=== PATIENT | female | born 1980 | race Caucasian/White ===

== ENCOUNTER 2016-07-12 09:53 | Emergency (ER) | payer SELFPAY ==
[~2016-07-12] VITALS: Ht 167.6 cm; Wt 63.6 kg
[2016-07-12 09:54] VITALS: BP 110/80; PULSE 74; RESP 18; O2SAT 99
[2016-07-12] MEDS ORDERED: ProchlorPERazine 5 mg/mL 2 mL Inj IM ONE (10:50)
[2016-07-12] MEDS ORDERED: Ketorolac 30 mg/mL 2 mL Inj IM ONE (10:50)
--- NOTE | 2016-07-12 11:04 | ED.REPORT ---
HPI-Headache Date of Service Jul 12, 2016 ED Provider: History of Present Illness: Mrs. Kate Lara is a pleasant 35-year-old female with past medical history significant for migraine headaches and back spasms presents to [facility] emergency Department for 1 day onset of migraines and back spasms. She reports a hiking trip 5 days ago on Sunday and Sunday morning began to have prodromal migraine symptoms similar to the one she has had no past however this time was associated with chills and spasms from her sacral region up to her neck and lasted multiple days. She reports her headache as an 8 out of 10 throbbing and diffuse radiating to the back of her eyes. She also reports associated photophobia and nausea. All weekend she rested in her bed and applied ice and heat and 20 minute intervals and took Excedrin. She reported that this lasted until Sunday, at which point she felt "normal." She began to feel as she did Sunday morning, generally ill with mild nausea and new onset chills. She arrives to the emergency department because she does not know what to do and feels that she needs relief k from the back spasms and headache and states she would like to return to work. She reports that this is not the worst headache of her life she does not have neck stiffness high fevers uncontrolled vomiting or other neurologic abnormalities such as numbness and tingling or loss of bowel and bladder. Nursing Notes Stated Complaint: BACK SPASMS/MIGRAINE Nursing Notes Reviewed: Yes Allergies: Uncoded Allergies: PENICILLIN (Allergy, Unknown, 11/30/09) Scheduled Prochlorperazine Maleate (Compazine) 10 Mg Tablet 10 MG PO TID Scheduled PRN Naproxen (Naproxen) 500 Mg Tab 500 MG PO BID PRN PRN For Pain General Time Seen by MD: 10:08 Chief Complaint Migraine headache Sudden in Onset?: Yes Past Medical History Past Medical History Cesarian section in 2009. Steroid injections in lumbar region. Migraines. Back spasms. Smoking History Never Smoker Social History Alcohol Use: "Social" Drug Use: Denies drug use Other Social History: Good social support Ambulatory Status Independent Review of Systems Review of Systems Note: A comprehensive review of systems was conducted with the patient and found to be negative except as above in the History of Present Illness. Complete sys rev & neg: except as marked. Physical Exam Physical Exam Notes: General: Elderly lady lying in bed on her right side with the lights dimmed in the room in no acute distress, well-developed, well-nourished, appropriately interactive HEENT: Normocephalic, atraumatic. External ears without defect. Pupils equal, round, and reactive to light and accommodation. Anicteric sclerae, moist conjunctivae, and no lid lag. Oropharynx free of erythema and cobble stoning with moist mucosa. Neck: Supple with full range of motion. No jugular venous distension. No bruits. No lymphadenopathy or thyromegaly. Cardiovascular: Regular rate and rhythm with no murmurs, rubs, or gallops appreciated Pulmonary: Clear to auscultation bilaterally with no crackles, wheezes, or rhonchi. Normal respiratory effort with no use of accessory muscles. Abdomen: Bowel tones present. Soft, nontender, nondistended. No hepatosplenomegaly or masses appreciated. Extremities: No clubbing, cyanosis, edema, or lymphadenopathy appreciated. Skin: Normal temperature, turgor, and texture; no rash, ulcers, or subcutaneous nodules appreciated. Neurological: Cranial nerves grossly intact. Normal muscle strength, tone, and bulk. Reflexes, coordination, and sensory function within normal limits. No known gait impairment. Musculoskeletal: Muscular tenderness noted from T10 to L2 paraspinal muscles. No tenderness noted along spinal processes. Psychiatric: Normal mood and affect. Alert and oriented to person, place, and time. Initial Vital Signs Vital Signs (First) Date Time Temp Pulse Resp B/P Pulse Ox O2 Delivery O2 Flow Rate FiO2 07/12/16 09:54 37 74 18 110/80 99 Room Air Re-Eval/Medical Decision Med Decision/Clinical Course Ms. Kate Carrero is experiencing migraines with photophobia and without aura and back spasms similar to previous episodes and also notes this is not the worst headache of her life. Her vitals were all within normal range, she has no aura no radiculopathy, no sensory dysfunction, no spinal tenderness, no neck stiffness. She reports some chills nausea and headache that she describes as associated with her muscle spasms. Here in the emergency department she was received 60 mg IM Toradol, 10 mg IM Compazine, and 50 mg IM Benadryl with moderate resolution of symptoms. Plan to send her home with Naproxen 500 mg BID PO and Compazine 10 mg TID PO. We recommend follow up with PCP and emergency contact directions. Discharge & Departure Shift Change Sign-Out Discussed Complaint(s): Yes Laboratory Evaluation: Lab evaluation discussed Response to Therapy: Improved Impression: Primary Impression: Migraine Additional Impression: Back spasm Disposition: Home Discharge Condition All VS Reviewed: Yes Condition: Stable Additional Instructions: During you visit to [facility] Emergency Department gave you IV Benadryl, IV Compazine, and IV toradol, With mild to moderate symptom relief. Here your vitals were stable and your physical exam did not reveal any emergent conditions. We will send you home with - Pain medications / Anti-inflammatory - Naproxen 500 mg by mouth twice a day as needed - Nausea medications Compazine 10 mg by mouth Do not hesitate to call emergency services or your primary care physician if you experience any of the following. -High unrelenting fevers. -Uncontrolled vomiting. -Acute change in vision -Severe hypertension. -Syncope or loss of consciousness. -Chest pain or severe shortness of breath. -Neurologic change like numbness tingling, weakness, paralysis. Follow up with your primary care physician in 1-2 weeks time following your emergency department visit for medication checks and general well-being. Recommend follow-up with Dr. Oksana Chen at [facility] for back pain, migraines, and healthcare. Attending Statement The patient was seen and examined together with Dr. Snyder on 07/12/16 and I have added additional information to the note above. copies to: Oksana Al COREY P DO Jul 12, 2016 10:03 Wesley Kulkarni DO Jul 12, 2016 14:31
[2016-07-12] MEDS ORDERED: PROC-4 PO (12:34)
[2016-07-12] MEDS ORDERED: NPR500T PO (12:34)
== END 2016-07-12 13:00 | disposition home or self-care (01) ==
LOC: SED 09:53
DX: G43.009 Migraine without aura, not intractable, without status migrainosus (principal); M62.830 Muscle spasm of back; R68.83 Chills (without fever); Z88.0 Allergy status to penicillin
CPT/HCPCS: 96372; 99284; J0780; J1200; J1885